=== PATIENT | female | born 1995 | race Caucasian/White ===

== ENCOUNTER 2021-10-30 08:44 | Outpatient (CLI) | payer OTHER ==
[~2021-10-30 08:44] MED LIST: FOLIC ACID0.4 MG PO; PRENATAL CAPSU1 EACH PO
== END 2021-10-30 09:28 | disposition home or self-care (01) ==
LOC: PRENATAL 08:44
PROVIDERS: ATTEND Obstetrics & Gynecology Maternal & Fetal Medicine
DX: O35.0XX0 Maternal care for (suspected) central nervous system malformation in fetus, not applicable or unspecified (principal); O35.3XX0 Maternal care for (suspected) damage to fetus from viral disease in mother, not applicable or unspecified; O34.219 Maternal care for unspecified type scar from previous cesarean delivery; O99.891 Other specified diseases and conditions complicating pregnancy; O99.210 Obesity complicating pregnancy, unspecified trimester; Z3A.35 35 weeks gestation of pregnancy

== ENCOUNTER 2021-11-08 15:45 | Outpatient (CLI) | payer OTHER | END 2021-11-08 17:00 | disposition home or self-care (01) | LOC: PRENATAL 15:45 | PROVIDERS: ATTEND Obstetrics & Gynecology Maternal & Fetal Medicine | DX: O35.0XX0 Maternal care for (suspected) central nervous system malformation in fetus, not applicable or unspecified (principal); O36.8199 Decreased fetal movements, unspecified trimester, other fetus; Z3A.36 36 weeks gestation of pregnancy ==

== ENCOUNTER 2021-11-24 12:15 | Inpatient (IN) | payer OTHER ==
[~2021-11-24] VITALS: Ht 149.9 cm; Wt 77.1 kg
[2021-11-24] MEDS ORDERED: KEPPRA750 MG PO (15:41)
== END 2021-12-02 15:12 | disposition home or self-care (01) | DRG 785 ==
LOC: OB/GYN 11-29 06:30 → O/R 11-29 06:30 → LDR 11-29 07:00 → OB/GYN 11-29 13:39
PROVIDERS: ADMIT Obstetrics & Gynecology; ATTEND Obstetrics & Gynecology
PROC: 0UB70ZZ Excision of Bilateral Fallopian Tubes, Open Approach (ICD-10-PCS; 2021-11-29)
PROC: 4A1HXCZ Monitoring of Products of Conception, Cardiac Rate, External Approach (ICD-10-PCS; 2021-11-29)
PROC: 10D00Z1 Extraction of Products of Conception, Low, Open Approach (ICD-10-PCS; principal; 2021-11-29 07:00)
DX: O34.211 Maternal care for low transverse scar from previous cesarean delivery (principal); O99.820 Streptococcus B carrier state complicating pregnancy; Z30.2 Encounter for sterilization; Z3A.39 39 weeks gestation of pregnancy; Z20.822 Contact with and (suspected) exposure to COVID-19